=== PATIENT | female | born 1950 | race Two or more races ===

== ENCOUNTER 2024-04-29 17:07 | Emergency (ER) | payer MEDICARE, OTHER ==
[~2024-04-29] VITALS: Ht 154.9 cm; Wt 71.3 kg
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
--- NOTE | 2024-04-29 19:42 | DVH ---
EXAM: CT HEAD WITHOUT CONTRAST INDICATION: [facility] TECHNIQUE: CT of the head without intravenous contrast. Radiation Dose Information: CT Dose: CTDI volume is 52.04 mGy. Dose-length product is 921.55 mGy*cm The dose indicators for CT are the volume Computed Tomography (CT) Dose Index (CTDIvol) and the Dose Length Product (DLP), and are measured in units of mGy and mGy-cm, respectively. These indicators are not patient dose, but values generated from the CT scanner acquisition factors. The report includes radiation exposure data for exposures received during this examination. COMPARISON: None FINDINGS: There is no evidence of acute intracranial hemorrhage, extra-axial collection, mass effect, midline s hift, herniation or hydrocephalus. The ventricles, sulci and cisterns are age appropriate. The monzon-white differentiation is intact. Patchy periventricular and subcortical white matter hypoattenuation is nonspecific but may be related to small vessel ischemic disease. Mucosal thickening in the maxillary sinuses bilaterally. The mastoid air cells are clear. The surrounding soft tissues and osseous structures are unremarkable. IMPRESSION: 1. No acute intracranial hemorrhage. 2. No CT findings of displaced skull fracture. 3. Mucosal thickening in the maxillary sinuses bilaterally.
--- NOTE | 2024-04-29 19:45 | DVH ---
EXAM: CT CERVICAL WITHOUT CONTRAST INDICATION: [facility] EXAM DATE: 04/29/2024 07:27 PM COMPARISON: None TECHNIQUE: Multiple axial CT images of the cervical spine were obtained using bone algorithm. Axial a nd coronal reformatting was done. Bone and soft tissue windows were reviewed. Radiation Dose Information: CT Dose: CTDI volume is 23.26 mGy. Dose-length product is 563.02 mGy*cm FINDINGS: The cervical alignment is intact. No acute cervical spine fracture is identified. The vertebral body heights are intact. No suspicious osseous lesions are identified. Multilevel [id number] degenerative changes of the cervical spine There is no prevertebral soft tissue swelling. Paraseptal emphysematous changes of the lung apices with biapical atelectasis/ scarring. The thyroid gland is unremarkable. Multiple small nodular densities within the bilateral parotid glands. IMPRESSION: No evidence of acute cervical spine fracture or traumatic malalignment. All CT scans at this medical facility are performed using dose modulation techniques as appropriate t o a performed exam including the following: Automated exposure control was utilized; adjustment of th e MA and/or KV according to patient size; and use of iterative reconstruction technique.
--- NOTE | 2024-04-29 20:14 | DVH ---
CLINICAL INDICATION: [facility] TECHNIQUE: 4 radiographic views of the left shoulder were obtained. Comparison: None FINDINGS/IMPRESSION: There is no evidence of acute fracture or dislocation. The visualized joint space is well maintained. The alignment is anatomical. There is no radiopaque foreign body.
--- NOTE | 2024-04-29 20:15 | DVH ---
CLINICAL INDICATION: [facility] TECHNIQUE: 2 radiographic views of the right shoulder were obtained. Comparison: None FINDINGS/IMPRESSION: There is no evidence of acute fracture or dislocation. Calcifications in the soft tissues adjacent to the greater tuberosity of the proximal humerus may rep resent calcified tendinitis. The visualized joint space is well maintained. The alignment is anatomical. There is no radiopaque foreign body.
--- NOTE | 2024-04-29 20:17 | DVH ---
CLINICAL INDICATION: [facility] TECHNIQUE: 2 radiographic views of the left forearm were obtained. Comparison: None FINDINGS/IMPRESSION: There is no evidence of acute fracture or dislocation. The visualized joint space is well maintained. The alignment is anatomical. There is no radiopaque foreign body.
--- NOTE | 2024-04-29 20:18 | DVH ---
CLINICAL INDICATION: [facility] TECHNIQUE: 2 radiographic views of the right forearm were obtained. Comparison: None FINDINGS/IMPRESSION: There is no evidence of acute fracture or dislocation. The visualized joint space is well maintained. The alignment is anatomical. There is no radiopaque foreign body.
[2024-04-29 20:58] VITALS: BP 166/64; PULSE 87; RESP 18; TEMP 99.2; O2SAT 94
[2024-04-29] MEDS ORDERED: CYCL-839 PO (21:02)
[2024-04-29] MEDS ORDERED: IBU600T PO (21:02)
== END 2024-04-29 21:21 | disposition home or self-care (01) ==
LOC: EDBD 17:07 → ER 17:07
DX: S50.12XA Contusion of left forearm, initial encounter (principal); S50.11XA Contusion of right forearm, initial encounter; S40.011A Contusion of right shoulder, initial encounter; S40.012A Contusion of left shoulder, initial encounter; S30.0XXA Contusion of lower back and pelvis, initial encounter; S20.219A Contusion of unspecified front wall of thorax, initial encounter; S00.93XA Contusion of unspecified part of head, initial encounter
CPT/HCPCS: 70450; 72125; 73030; 73090